=== PATIENT | male | born 1955 | race Caucasian/White ===

== ENCOUNTER 2017-07-07 11:00 | Emergency (ER) | payer BC ==
[~2017-07-07] VITALS: Ht 167.6 cm; Wt 53.1 kg
[2017-07-07 13:38] LABS: Alanine Aminotransferase 41 U/L (16-61); Albumin 3.5 g/dL (3.4-5.0); Anion Gap 19 (5-15); Aspartate Aminotransferase 61 U/L (15-37); BUN/Creatinine Ratio 15.4; Blood Alcohol < 3.0 mg/dL (0-5); Blood Urea Nitrogen 23 mg/dL (7-18); Calcium 9.4 mg/dL (8.5-10.1); Carbon Dioxide 19 mmol/L (21-32); Chloride 101 mmol/L (98-107); GFR African American 61 mL/min; GFR Non-African American 51 mL/min; Glucose 56 mg/dL (74-106); Potassium 3.4 mmol/L (3.5-5.1); Salicylate 2.8 mg/dL (2.8-20.0); Sodium 139 mmol/L (136-145)
[2017-07-07 13:40] LABS: Basophils # (auto) 0 uL; Basophils % (auto) 0.1 % (0.0-2.0); Hemoglobin 10.9 g/dL (13.5-17.5); Lymphocytes % (auto) 8.5 % (10.0-50.0); Monocytes # (auto) 1.2 uL; Neutrophils # (auto) 9.2 uL; White Blood Cell 11.4 10^3/uL (4.4-10.8)
[2017-07-07 13:43] LABS: Alkaline Phosphatase 84 U/L (45-117); Bilirubin, Total 0.5 mg/dL (0.2-1.0); Eosinophils # (auto) 0 uL; Eosinophils % (auto) 0.3 % (0.0-7.0); Mean Corpuscular Hemoglobin 33.5 pg (28.0-32.0); Mean Corpuscular Hgb Conc. 32.9 g/dL (32.0-36.0); Mean Corpuscular Volume 101.9 fL (80.0-100.0); Monocytes % (auto) 10.3 % (0.0-12.0); Neutrophils % (auto) 80.8 % (37.0-80.0); Platelet Count (auto) 549 10^3/uL (140-450); Red Blood Cells 3.24 10^6/uL (4.5-5.90); Red Cell Distribution Width 14.1 % (11.8-14.3); Total Protein 7.7 g/dL (6.4-8.2)
[2017-07-07 13:45] LABS: Acetaminophen < 2.0 ug/mL (10-30)
[2017-07-07 22:12] LABS: Urine Bacteria NONE SEEN /hpf (None Seen); Urine Blood Negative /uL (Negative); Urine Hyaline Cast MANY /lpf (0 - 2); Urine Mucus FEW (None Seen); Urine Specific Gravity 1.021 (1.001-1.035); Urine WBC 1 /hpf (0 - 3)
[2017-07-07 22:21] LABS: Alcohol, Urine < 3.0 mg/dL (0-5); Amphetamine Screen, Urine POSITIVE (NEGATIVE); Barbiturate Scree,Urine NEGATIVE (NEGATIVE); Benzodiazephine Screen, Urine NEGATIVE (NEGATIVE); Cannabinoid Screen, Urine NEGATIVE (NEGATIVE); Cocaine Screen, Urine NEGATIVE (NEGATIVE); Opiate Scree,Urine NEGATIVE (NEGATIVE); Phencyclidine Screen, Urine NEGATIVE (NEGATIVE)
[2017-07-07] MEDS ORDERED: LORazepam 2MG/ML-1ML VIAL IV ONE (22:30)
[2017-07-08] MEDS ORDERED: SODIUM CHLORIDE 0.9% 1,000 ML IV SCH (06:15)
[2017-07-08] MEDS ORDERED: SODIUM CHLORIDE 0.9% 1,000 ML IV ONE (06:30)
[2017-07-08] MEDS ORDERED: LORazepam 0.5 MG TAB PO ONE (11:42)
[2017-07-08] MEDS ORDERED: chlordiazePOXIDE HCL 25 MG CAP PO ONE (11:42)
[2017-07-08] MEDS ORDERED: LORazepam 0.5 MG TAB PO PRN (11:45)
[2017-07-09] MEDS: chlordiazePOXIDE HCL 25 MG CAP PO SCH (10:35)
[2017-07-09] MEDS ORDERED: predniSONE 20 MG TAB PO ONE (10:45)
[2017-07-09] MEDS ORDERED: ALBUTEROL SULF 2.5 MG/0.5ML(0.5%) NEB SOLN NEB ONE (10:45)
[2017-07-09] MEDS ORDERED: IPRATROPIUM BROM 0.5 MG/2.5ML INH SOL NEB ONE (10:45)
[2017-07-10] MEDS ORDERED: ALBUTEROL SULF 2.5 MG/0.5ML(0.5%) NEB SOLN NEB ONE (02:15)
[2017-07-10] MEDS ORDERED: IPRATROPIUM BROM 0.5 MG/2.5ML INH SOL NEB ONE (02:15)
[2017-07-10] MEDS: IPRATROPIUM BROM 0.5 MG/2.5ML INH SOL NEB SCH ×4 (07:00→18:20)
[2017-07-10] MEDS: ALBUTEROL SULF 2.5 MG/0.5ML(0.5%) NEB SOLN NEB SCH ×4 (07:00→18:20)
[2017-07-10] MEDS: BUDESONIDE (INHALATION) 0.5 MG/2 ML NEB NEB SCH ×2 (10:30→18:20)
[2017-07-10] MEDS: chlordiazePOXIDE HCL 25 MG CAP PO SCH (11:16)
[2017-07-10 19:15] VITALS: BP 117/81
== END 2017-07-11 00:51 | disposition home or self-care (01) ==
LOC: ER 11:00
DX: R44.3 Hallucinations, unspecified (principal); R45.850 Homicidal ideations; F41.9 Anxiety disorder, unspecified; F32.9 Major depressive disorder, single episode, unspecified; M10.9 Gout, unspecified; J44.9 Chronic obstructive pulmonary disease, unspecified; I10 Essential (primary) hypertension; E78.5 Hyperlipidemia, unspecified; F15.10 Other stimulant abuse, uncomplicated
CPT/HCPCS: 36415; 70450; 71045; 72100; 80053; 80307; 80320; 80329; 81001; 84484; 85025; 93005; 94640; 96361; 96374; 99285; J2060; J7030